=== PATIENT | female | born 1985 | race Caucasian/White ===

== ENCOUNTER 2018-10-26 10:45 | Inpatient (IN) | payer OTHER ==
[~2018-10-26] VITALS: Ht 157.5 cm; Wt 71.7 kg
[2018-10-26 10:53] VITALS: BP 146/78
[2018-10-26] MEDS ORDERED: DOXYCYCLINE 10100 MG PO (10:56)
[2018-10-26] MEDS ORDERED: MUPIROCIN1 GM TOP (10:56)
[2018-10-26 11:49] LABS: ABSOLUTE BASOPHILS 0.1 thou/uL (0.0-0.2); ABSOLUTE EOSINOPHILS 0.1 thou/uL (0.0-0.7); ABSOLUTE MONOCYTES 0.5 thou/uL (0.0-1.2); ABSOLUTE NEUTROPHILS 5.4 thou/uL (1.6-8.1); BASOPHILS 0.9 %; HEMATOCRIT 35.9 % (37.0-47.0); HEMOGLOBIN 11.7 gm/dL (12.0-15.0); LYMPHOCYTES 14.3 %; MCH 26.7 pg (26.0-34.0); MCHC 32.7 g/dL (28.0-37.0); MCV 81.5 fL (80.0-100.0); MONOCYTES 7.3 %; MPV 7.5 fl. (7.2-11.1); NUCLEATED RBCS 0 /100WBC; PLATELET COUNT* 296 thou/uL (150-400); POLYS 75.5 %; RDW-CV 16.6 % (10.5-14.5); WBC 7.1 thou/uL (4.0-11.0)
[2018-10-26 11:55] LABS: CALCIUM 8.3 mg/dL (8.5-10.1); CREATININE 0.7 mg/dL (0.6-1.3); POTASSIUM 3.7 mmol/L (3.5-5.1)
[2018-10-26 11:59] LABS: ALBUMIN 3.2 g/dL (3.4-5.0); TOTAL BILIRUBIN 0.4 mg/dL (<0.1-1.0); TOTAL PROTEIN 7.2 g/dL (6.4-8.2)
[2018-10-26 14:38] LABS: URINE BILIRUBIN NEGATIVE (Negative); URINE BLOOD NEGATIVE (Negative); URINE CLARITY CLEAR; URINE COLOR YELLOW; URINE GLUCOSE-RANDOM NEGATIVE (Negative); URINE KETONES NEGATIVE (Negative); URINE LEUKOCYTES-REFLEX NEGATIVE (Negative); URINE NITRITE-REFLEX NEGATIVE (Negative); URINE PROTEIN NEGATIVE (Negative); URINE SPECIFIC GRAVITY 1.015 (1.005-1.030); URINE UROBILINOGEN 0.2 E.U./dl (0.2-1.0)
[2018-10-26] MEDS ORDERED: PROCARDIA XL30 MG PO (15:46)
[2018-10-26 16:32] VITALS: BP 135/62
[2018-10-26 16:55] VITALS: BP 122/76
[2018-10-26] MEDS ORDERED: OMEPRAZOLE40 MG PO (17:16)
[2018-10-26 20:00] VITALS: BP 130/80
[2018-10-27 08:00] VITALS: BP 124/87
[2018-10-27 15:00] VITALS: BP 127/71
[2018-10-27 20:07] VITALS: BP 135/82
[2018-10-28 08:15] VITALS: BP 128/80
[2018-10-28] MEDS ORDERED: MINOCYCLINE HC100 M2 PO ×2 (11:58→12:16)
[2018-10-28] MEDS ORDERED: TRAMADOL 50 MG50 MG PO (12:16)
[2018-10-28 12:33] VITALS: BP 128/80
--- NOTE | 2018-10-29 05:50 | CON ---
[address] [address] CONSULTATION Name: RINALDILAMONTE Room: [address]#: [id number] Admission: 10/26/18 Attend Phys: Meredith Gimenez MD Discharge: 10/28/18 Date of : 89 Report #: [id number] THIS REPORT FOR: //name// CC: Meredith Gimenez Broderick Marnie DATE OF SERVICE: 10/27/2018 ATTENDING PHYSICIAN: Meredith Gimenez MD REASON FOR EVALUATION: Inflammatory eruption involving the medial aspect of her mid portion of her right thigh, perhaps a complication of spider bite with secondary bacterial skin and soft tissue infection/cellulitis. HISTORY OF PRESENT ILLNESS: Chart reviewed, patient examined. This is a 33-year-old with history of Raynaud's, who over the course of the last 3 days had developed pain associated with her right thigh. This was quite erythematous and swollen. She notes that prior to admission, was unable to bear weight and ambulate. She notes she has had several spider bites and is known to have spiders in her living environment, not clear if she has had fevers nor systemic illness. She was evaluated previously and had culture proven MRSA. She was started empirically on doxycycline; however, continue to worsen and she was admitted and now is on vancomycin. At this point, she is not overtly toxic. Denies any pulmonary or gastrointestinal related complaints. ALLERGIES: LATEX. CURRENT MEDICATIONS: Include multivitamin, nifedipine, ceftriaxone, vancomycin, pantoprazole, ondansetron, melatonin and tramadol. PAST MEDICAL HISTORY: As noted above, some skin and soft tissue infection, history of spina bifida, depression, Raynaud's and herpes simplex. SOCIAL HISTORY: Nonsmoker, occasional ethanol, no illicit drug use. FAMILY HISTORY: Noncontributory. REVIEW OF SYSTEMS: Otherwise, unremarkable 10-point review of systems with exception of the above history of present illness. PHYSICAL EXAMINATION: GENERAL: She is alert, cooperative, appropriate, mild distress, appears to be well nourished. VITAL SIGNS: Temperature 98.1, pulse 85, respirations 28 and blood pressure 127/71. SKIN: [place] [address] CONSULTATION Name: LAMONTE RINALDI Becca Room: [address]#: [id number] Admission: 10/26/18 Attend Phys: Meredith Gimenez MD Discharge: 10/28/18 Date of : 89 Report #: [id number] HEENT: Normocephalic. Extraocular muscles intact. NECK: Supple. LUNGS: Clear to auscultation bilaterally. HEART: Regular rate and rhythm without murmur. ABDOMEN: Soft, nontender, nondistended. EXTREMITIES: Right medial thigh mid portion appears to be a contused area consistent with hemorrhagic process. There is a focal area appears to be a puncture site, has moderate degree of inflammation several centimeters around that. Margin is tender to palpation. Distal lower extremities, otherwise unremarkable. RECTAL: Deferred. LABORATORY DATA: Blood cultures sterile thus far. test was negative. Urinalysis is unremarkable. Lactic acid 0.8. Electrolytes: Sodium 137, potassium 3.7, chloride 102, bicarbonate is 26, anion gap of 9, BUN and creatinine 14 and 0.7. LFTs unremarkable. Albumin of 3.2, total protein 7.2. Estimated GFR of 98. CBC: White count 7.1, H and H 11.7 and 35.9 and platelets of 296. Differential unremarkable. ASSESSMENT AND PLAN: Skin and soft tissue infection associated with the right medial thigh may well have been a spider bite secondary infection, does have a recent history of MRSA. We will continue therapy as the current approach, warm moist heat to the site to dry it out, use some Abdelrahman wraps for compression if she is able to tolerate it. In the event of localizing may be a candidate for incision and drainage procedure. <ELECTRONICALLY SIGNED> By: Gerber Rodriguez MD 10/29/18 0550 [id number] Rodriguez MD /nt
== END 2018-10-28 13:45 | disposition home or self-care (01) | DRG 603 ==
LOC: M.ERS 10:45 → M.ORTHSURG 12:08 → M.TBA-ER 12:08 → M.ORTHSURG 16:46
PROVIDERS: Physician Assistant; ADMIT Family Medicine
DX: L03.115 Cellulitis of right lower limb (principal); L02.416 Cutaneous abscess of left lower limb; L02.415 Cutaneous abscess of right lower limb; I73.00 Raynaud's syndrome without gangrene; Z86.14 Personal history of Methicillin resistant Staphylococcus aureus infection; Z91.040 Latex allergy status; W57.XXXA Bitten or stung by nonvenomous insect and other nonvenomous arthropods, initial encounter; Y93.89 Activity, other specified; Y92.89 Other specified places as the place of occurrence of the external cause; Y99.8 Other external cause status; Z79.899 Other long term (current) drug therapy